=== PATIENT | male | born 1985 | race Caucasian/White ===

== ENCOUNTER 2021-12-20 19:16 | Emergency (ER) | payer OTHER, SELFPAY ==
[2021-12-20 19:18] VITALS: BP 140/100; PULSE 96; RESP 18; TEMP 36.1; O2SAT 100
[2021-12-20 19:33] VITALS: BP 133/86; PULSE 95; RESP 20; O2SAT 100
[2021-12-20 20:49] VITALS: BP 143/106; PULSE 78; RESP 18; O2SAT 100
[2021-12-20 20:52] LABS: Basophils Absolute Auto 0.1 K/mm3 (0.0-0.1); Basophils Percent Auto 0.7 % (0.2-1.2); Eosinophils Absolute Auto 0.2 K/mm3 (0-0.3); Eosinophils Percent Auto 1.6 % (0-4.4); Hematocrit 48.4 % (42.0-52.0); Hemoglobin 15.5 g/dL (14.0-18.0); Immature Granulocyte Absolute 0.03 K/mm3 (0.00-0.031); Immature Granulocyte Percent A 0.3 % (0-0.5); Lymphocytes Absolute Auto 1.59 K/mm3 (0.9-3.2); Lymphocytes Percent Auto 15.4 % (18.3-44.2); Mean Corpuscular Hemoglobin 29.1 pg (26-34); Mean Platelet Volume 10.1 fl (7.4-10.4); Monocytes Absolute Auto 0.7 K/mm3 (0.1-0.6); Monocytes Percent Auto 6.5 % (2.6-8.5); Neutrophils Absolute Auto 7.8 K/mm3 (1.3-6.7); Neutrophils Percent Auto 75.5 % (45.5-73.1); Platelet Count Result 299 k/mm3 (150-375); Red Blood Count 5.32 M/mm3 (4.6-6.20); Red Cell Distribution Width 13.7 % (11.5-14.5); White Blood Count 10.3 K/mm3 (4.5-10.0)
[2021-12-20 21:11] LABS: Alanine Aminotransferase 45 U/L (4-50); Albumin Level 4.7 g/dL (3.5-5.1); Alkaline Phosphatase 74 U/L (38-126); Anion Gap 7 mmol/L (8-16); Aspartate Amino Transferase 30 U/L (17-59); Bilirubin,Total 0.9 mg/dL (0.2-1.3); Blood Urea Nitrogen 18 mg/dL (9-20); Calcium 9.6 mg/dL (8.4-10.2); Carbon Dioxide 28 mmol/L (22-30); Chloride 106 mmol/L (98-107); Estimated CRCL calculation 108 ml/min; Estimated Glomerular Filt Rate > 60; Glucose 96 mg/dL (65-110); Lipase 49 U/L (23-300); Potassium 4.6 mmol/L (3.4-5.0); Sodium 141 mmol/L (137-145)
--- NOTE | 2021-12-20 21:29 | PC.NURSE ---
patient states he is unable to void because my kidneys failed stupid and refuses to be straight cathed for ua
--- NOTE | 2021-12-20 21:46 | ECG_ITS ---
Measurements Intervals [place] Rate: 92 P: 46 WA: 182 QRS: 48 QRSD: 94 T: 47 QT: 337 QTc: 417 Interpretive Statements SINUS RHYTHM BASELINE ARTIFACT- I, III, AVL BORDERLINE ECG Electronically Signed On 12-21-2021 6:26:13 FARROWING WORKER by Jefesron Claros D.O.
--- NOTE | 2021-12-20 22:00 | PC.NURSE ---
[place] [employer] with transmitter engineer in charge at this time. Pt standing in the hallway demanding to be transferred to [place]. Pt explained that we have no medical reason to transfer the patient and that since he was refusing to let us do the tests that the ERP ordered, the erp would like him to sign out AMA. Pt refusing to sign out AMA, Jocelyn informed pt he had a choice, let us help you by doing the tests, or sign the paper work and leave. Pt walked into room 8, then promptly walked out of room 8 and out the ems doors. Security followed pt out the doors and observed pt ambulate to someones car, and exit the property. Jocelyn briggs said that if he returns to contact them immediately.
--- NOTE | 2021-12-20 22:07 | PC.NURSE ---
This RN and ERP Dr. Osborne at bedside to inform patient that his EKG was fine, and that he would be discharging him home. Pt stated I should put my fucking hands on you. This rn notified pt that it is not allowed to make threats of violence against a doctor or nurse and he stated I dont fucking care.
--- NOTE | 2021-12-20 22:08 | PC.NURSE ---
patient complaining that no one is doing anything for him, patient had his girlfriend call assistant front desk manager to ask why staff was ignoring patient. patient became hostile with banquet kitchen supervisor telling them they were doing the ekg wrong
--- NOTE | 2021-12-20 22:11 | PC.NURSE ---
Pt in the hallway requesting IV be removed immediately. This rn removed IV and pt stated again I am going to put my hands on him, I aint paying for this fucking bullshit. Ya'll aint doing any orders anyways, you didnt do any ekg, yall didnt order the right tests, or do what I am telling you to do. Jocelyn KOROMA notified and Enroute to facility.
--- NOTE | 2021-12-20 22:14 | ED.ABDPAIN ---
HPI - Abdominal Pain General Chief Complaint: Abdominal Pain Stated Complaint: abdominal pain Time Seen by Provider: 12/20/21 20:08 Source: patient Mode of arrival: ambulatory Limitations: no limitations History of Present Illness HPI narrative: 36-year-old here with complaints of abdominal pain for past 1 week. He states that he is constipated has used Dulcolax suppository with no relief he has severe abdominal pain. He denies any nausea or vomiting. He also states that he is has heart failure and wants echocardiogram of his heart. He denies any chest pain. He states that he is unable to urinate MD elicited complaint: abdominal pain Pertinent past history: constipation Onset (ago): week(s) (1) Location: diffuse Quality: aching Exacerbating factors: nothing Relieving factors: nothing Related Data Allergies Allergy/AdvReac Type Severity Reaction Status Date / Time No Known Allergies Allergy Unknown Unverified 04/19/14 02:29 Review of Systems Review of Systems: All systems reviewed & are unremarkable except as noted in HPI and below Constitutional: Constitutional: Reports no additional constitutional complaints Eyes: Eyes: Reports no additional eye complaints ENT: Reports system reviewed and no additional complaints, except as documented Cardiovascular: Cardiovascular: Reports no additional cardiovascular complaints Respiratory: Respiratory: Reports no additional respiratory complaints Gastrointestinal: Gastrointestinal: Reports as per HPI Musculoskeletal: Musculoskeletal: Reports no additional musculoskeletal complaints Integumentary/Breasts: Skin/Breast: Reports system reviewed and no additional complaints, except as docu Neurologic: Reports system reviewed and no additional complaints, except as documented Exam Narrative: GENERAL: Well-appearing, well-nourished, and in no acute distress. HEAD: Normocephalic, atraumatic. EYES: PERRLA and EOMI. NECK: Supple. CHEST: Clear to auscultation. No respiratory distress. HEART: Regular rate and rhythm. No murmur heard. Normal peripheral pulses. ABDOMEN: Soft, nontender, nondistended, normal active bowel sounds. EXTREMITIES: Normal range of motion. No edema. SKIN: Warm, dry, no rash. NEURO: No focal deficits. Alert and oriented x3. PSYCH: Normal mood and affect. Course Course Emergency Course: Patient is very argumentative. Cursing cursing me calling me . he states that he declined CT and Chest Xray , he has been cursing , had to call Jocelyn KOROMA as he was threatening me. He wants him to be transferred to [facility] I have told him that he does not meet criteria for transfer he can go on his own Vital Signs Vital signs: Vital Signs Temperature 36.1 C L 12/20/21 19:18 Pulse Rate 96 12/20/21 19:18 Respiratory Rate 18 12/20/21 19:18 Blood Pressure 140/100 H 12/20/21 19:18 Pulse Oximetry 100 12/20/21 19:18 Temperature 36.1 C L 12/20/21 19:18 Pulse Rate 78 12/20/21 20:49 Respiratory Rate 18 12/20/21 20:49 Blood Pressure 143/106 H 12/20/21 20:49 Pulse Oximetry 100 12/20/21 20:49 MDM - Abdominal Pain Lab Data Result diagrams: 12/20/21 20:47 12/20/21 20:47 Labs: Lab Results 12/20/21 12/20/21 Range/Units 20:47 20:47 WBC 10.3 H (4.5-10.0) K/mm3 RBC 5.32 (4.6-6.20) M/mm3 Hgb 15.5 (14.0-18.0) g/dL Hct 48.4 (42.0-52.0) % MCV 91.0 (80-100) fl MCH 29.1 (26-34) pg MCHC 32.0 (32-36) g/dl RDW 13.7 (11.5-14.5) % Plt Count 299 (150-375) k/mm3 MPV 10.1 (7.4-10.4) fl Immature Gran % (Auto) 0.3 (0-0.5) % Neut % (Auto) 75.5 H (45.5-73.1) % Lymph % (Auto) 15.4 L (18.3-44.2) % [place] % (Auto) 6.5 (2.6-8.5) % Eos % (Auto) 1.6 (0-4.4) % Baso % (Auto) 0.7 (0.2-1.2) % Lymph # (Auto) 1.59 (0.9-3.2) K/mm3 [place] # (Auto) 0.7 H (0.1-0.6) K/mm3 Eos # (Auto) 0.2 (0-0.3) K/mm3 Baso # (Auto) 0.1 (0.0-0.1) K/mm3 Abs Imm
--- NOTE | 2021-12-20 22:34 | PC.NURSE ---
patient left treatment area prior to being discharged.
== END 2021-12-20 22:36 | disposition left against medical advice (07) ==
PROVIDERS: Emergency Provider Family Medicine
DX: R10.84 Generalized abdominal pain (principal)
CPT/HCPCS: 36415; 80053; 83690; 85025; 93005; 99283